=== PATIENT | male | born 1980 | race African-American/Black ===

== ENCOUNTER 2017-04-14 20:01 | Emergency (ER) | payer OTHER ==
[~2017-04-14] VITALS: Ht 188 cm; Wt 73.5 kg
[~2017-04-14 20:01] MED LIST changes: -AMOXICILLIN 50500 MG PO; -MOBIC7.5 MG PO; -PREDNISONE 20 M20 MG PO
[2017-04-14] MEDS ORDERED: AMOXICILLIN 50500 MG PO (21:14)
[2017-04-14] MEDS ORDERED: MOBIC7.5 MG PO (21:15)
[2017-04-14] MEDS ORDERED: PREDNISONE 20 M20 MG PO (21:15)
== END 2017-04-14 21:37 | disposition home or self-care (01) ==
LOC: ER 20:01
DX: J02.0 Streptococcal pharyngitis (principal); F17.210 Nicotine dependence, cigarettes, uncomplicated; J45.909 Unspecified asthma, uncomplicated

== ENCOUNTER → 2017-04-14 | Emergency (ER) | payer OTHER ==
[~2017-04-14] VITALS: Ht 188 cm; Wt 73.5 kg
[~2017-04-14] MED LIST: AMOXICILLIN 50500 MG PO; MOBIC7.5 MG PO; PREDNISONE 20 M20 MG PO; VENTOLIN HFA 1818 GM INH
== END ==
LOC: ER 17:17
DX: J02.9 Acute pharyngitis, unspecified (principal); H92.01 Otalgia, right ear